=== PATIENT | female | born 1975 | race Caucasian/White ===

== ENCOUNTER 2024-03-09 20:05 | Emergency (ER) | payer OTHER ==
[~2024-03-09] VITALS: Ht 172.7 cm; Wt 77.1 kg
[2024-03-09 20:14] VITALS: TEMP 98.8
[2024-03-09] MEDS ORDERED: IBUP-1490 PO (21:47)
[2024-03-09 21:50] VITALS: BP 132/71; O2SAT 99
== END 2024-03-09 21:50 | disposition home or self-care (01) ==
LOC: ER 20:11
DX: S93.522A Sprain of metatarsophalangeal joint of left great toe, initial encounter (principal); I10 Essential (primary) hypertension; Z79.1 Long term (current) use of non-steroidal anti-inflammatories (NSAID); W22.8XXA Striking against or struck by other objects, initial encounter; Y93.89 Activity, other specified; Y92.89 Other specified places as the place of occurrence of the external cause; Y99.8 Other external cause status
CPT/HCPCS: 73630-TC; 73660-TC